=== PATIENT | male | born 1945 | race Caucasian/White ===

== ENCOUNTER → 2022-01-18 | Outpatient (CLI) | payer MEDICARE, OTHER | LOC: HEART CORB 09:00 | DX: I25.119 Atherosclerotic heart disease of native coronary artery with unspecified angina pectoris (principal); Z95.1 Presence of aortocoronary bypass graft; E11.9 Type 2 diabetes mellitus without complications; I10 Essential (primary) hypertension | CPT/HCPCS: 78452; A9502; J2785 ==